=== PATIENT | female | born 1955 | race Caucasian/White ===

== ENCOUNTER → 2017-02-17 | Outpatient (CLI) | payer OTHER ==
--- NOTE | 2017-02-17 15:37 | XR ---
EXAMINATION TYPE: XR panorex DATE OF EXAM: 02/17/2017 COMPARISON: NONE HISTORY: Pain lower right mandible x2 months TECHNIQUE: Panorex FINDINGS: No acute fractures are evident. Temporomandibular junctions are normal. Dental amalgam is p resent. Prior root canals are evident. No abscess formation is identified. IMPRESSION: 1. No suspicious changes Panorex mandible
== END | disposition home or self-care (01) ==
LOC: RADXRMAIN 12:04
PROVIDERS: ATTEND Internal Medicine
DX: R68.84 Jaw pain (principal)
CPT/HCPCS: 70355

== ENCOUNTER → 2017-08-17 | Outpatient (CLI) | payer OTHER ==
--- NOTE | 2017-08-18 11:35 | MM ---
Reason for exam: screening (asymptomatic). Last mammogram was performed 1 year and 4 months ago. History: Patient is postmenopausal. Family history of breast cancer in grandmother. Took hormonal contraceptives for 2 years. Physical Findings: A clinical breast exam by your physician is recommended on an annual basis and results should be correlated with mammographic findings. MG 3D Screening Mammo W/Cad Bilateral CC and MLO view(s) were taken. Prior study comparison: April 13, 2016, bilateral MG screening mammo w CAD. July 06, 2015, left breast MG 3d diag mammo w/cad LT. The breast tissue is heterogeneously dense. This may lower the sensitivity of mammography. Stable benign calcifications. There is no discrete abnormality. No significant changes when compared with prior studies. ASSESSMENT: Benign, BI-RAD 2 RECOMMENDATION: Routine screening mammogram in 1 year.
== END ==
LOC: RADMAMWWP 08:38
PROVIDERS: ATTEND Obstetrics & Gynecology
DX: Z12.31 Encounter for screening mammogram for malignant neoplasm of breast (principal)
CPT/HCPCS: 77063; 77067

== ENCOUNTER → 2018-09-05 | Outpatient (CLI) | payer OTHER ==
--- NOTE | 2018-09-06 11:17 | MM ---
Reason for exam: screening (asymptomatic). Last mammogram was performed 1 year and 1 month ago. History: Patient is postmenopausal. Family history of breast cancer in grandmother. Took hormonal contraceptives for 2 years. Physical Findings: A clinical breast exam by your physician is recommended on an annual basis and results should be correlated with mammographic findings. MG 3D Screening Mammo W/Cad Bilateral CC and MLO view(s) were taken. Prior study comparison: August 17, 2017, bilateral MG 3d screening mammo w/cad. April 13, 2016, bilateral MG screening mammo w CAD. The breast tissue is heterogeneously dense. This may lower the sensitivity of mammography. Stable benign calcifications in the left breast. ASSESSMENT: Benign, BI-RAD 2 RECOMMENDATION: Routine screening mammogram of both breasts in 1 year.
== END | disposition home or self-care (01) ==
LOC: RADMAMWWP 07:05
PROVIDERS: ATTEND Internal Medicine
DX: Z12.31 Encounter for screening mammogram for malignant neoplasm of breast (principal)
CPT/HCPCS: 77063; 77067

== ENCOUNTER 2020-09-08 09:34 | Day surgery (SDC) | payer MEDICARE, OTHER ==
[2020-09-04 14:57] VITALS: BMI 28.3
[~2020-09-08 09:34] MED LIST: LIDOCAINE 1% (10MG/ML) FOR IV START INTRADERMA PRN
[2020-09-08] MEDS: LACTATED RINGERS 1,000 ML IV SCH ×2 (10:15→10:35)
[2020-09-08 10:16] VITALS: RESP 16; TEMP 97.8
[2020-09-08] MEDS ORDERED: LIDOCAINE 1% INJ 10MG/ML (20 ML MDV) ONE (10:36)
[2020-09-08] MEDS ORDERED: PROPOFOL 10 MG/ML 20 ML VIAL IV ONE (10:36)
[2020-09-08 11:20] VITALS: BP 131/73; PULSE 92
--- NOTE | 2020-09-08 11:30 | P.OP ---
Date of Procedure: 09/08/20 Preoperative Diagnosis: History of end colosotomy Postoperative Diagnosis: Same Procedure(s) Performed: Colonoscopy through stoma and colonoscopy of rectal stump with cold biopsy Anesthesia: MAC Surgeon: Kevin Noguera Estimated Blood Loss (ml): 0 Condition: stable Disposition: PACU Description of Procedure: Patient is brought Endo suite remained in the supine position underwent sedation per department of anesthesia timeout performed correct patient correct procedure correct site was verified scope was passed from the stoma to the cecum with ease the terminal ileum was intubated and no abnormalities were noted the scope was then slowly withdrawn being sure to visualize all díaz of the colon on the way out there was pandiverticulosis noted worse in the left colon. The scope was then placed through the rectum to the staple line which is noted at 30 cm. There was significant sigmoid diverticulosis left and the portion of the sigmoid that remained. There was some inflammation as well noted. Biopsies were taken. No other abnormalities are seen. Patient tolerated the procedure well there are no apparent complications
== END 2020-09-08 11:52 | disposition home or self-care (01) ==
LOC: ORWHC2ENDO 09:34
PROVIDERS: ATTEND Student in an Organized Health Care Education/Training Program
DX: Z43.3 Encounter for attention to colostomy (principal); K57.30 Diverticulosis of large intestine without perforation or abscess without bleeding; K21.9 Gastro-esophageal reflux disease without esophagitis; I10 Essential (primary) hypertension; Z88.2 Allergy status to sulfonamides; Z79.899 Other long term (current) drug therapy
CPT/HCPCS: 88305; 44389; J2001; J2704

== ENCOUNTER → 2021-03-25 | Outpatient (CLI) | payer MEDICARE ==
--- NOTE | 2021-03-25 09:19 | MM ---
Reason for exam: screening (asymptomatic). Last mammogram was performed 2 years and 7 months ago. History: Patient is postmenopausal. Family history of breast cancer in grandmother. Took hormonal contraceptives for 2 years. Physical Findings: A clinical breast exam by your physician is recommended on an annual basis and results should be correlated with mammographic findings. MG 3D Screening Mammo W/Cad Bilateral CC and MLO view(s) were taken. Prior study comparison: September 05, 2018, bilateral MG 3d screening mammo w/cad. August 17, 2017, bilateral MG 3d screening mammo w/cad. The breast tissue is heterogeneously dense. This may lower the sensitivity of mammography. There are benign appearing dystrophic calcifications in the right breast. There is chronic nodularity bilaterally. There is no discrete abnormality. ASSESSMENT: Benign, BI-RAD 2 RECOMMENDATION: Routine screening mammogram of both breasts in 1 year.
== END | disposition home or self-care (01) ==
LOC: RADMAMWWP 07:23
PROVIDERS: ATTEND Family Medicine
DX: Z12.31 Encounter for screening mammogram for malignant neoplasm of breast (principal)
CPT/HCPCS: 77063; 77067

== ENCOUNTER → 2022-05-04 | Outpatient (CLI) | payer MEDICARE ==
--- NOTE | 2022-05-05 08:48 | MM ---
Reason for Exam: Screening (asymptomatic). Last mammogram was performed 1 year(s) and 2 month(s) ago. Patient History: Menarche at age 13. First Full-Term at age 21. Postmenopausal. Patient used Hormonal Contraceptives for 2 years. Maternal grandmother had breast cancer. Risk Values: Arleen 5 year model risk: 1.4%. NCI Lifetime model risk: 4.6%. Prior Study Comparison: 08/17/2017 Bilateral Screening Mammogram, [facility]. 09/05/2018 Bilateral Screening Mammogram, [facility]. 03/25/2021 Bilateral Screening Mammogram, [facility]. Tissue Density: The breast tissue is heterogeneously dense. This may lower the sensitivity of mammography. Findings: Analyzed By CAD. There is no suspicious group of microcalcifications or new suspicious mass in either breast. Overall Assessment: Negative, BI-RAD 1 Management: Screening Mammogram of both breasts in 1 year. A clinical breast exam by your physician is recommended on an annual basis and results should be correlated with mammographic findings. Electronically signed and approved by: Raj Garcia M.D. Radiologis
== END | disposition home or self-care (01) ==
LOC: RADMAMWWP 07:44
PROVIDERS: ATTEND Family Medicine
DX: Z12.31 Encounter for screening mammogram for malignant neoplasm of breast (principal); Z78.0 Asymptomatic menopausal state; Z80.3 Family history of malignant neoplasm of breast
CPT/HCPCS: 77063; 77067

== ENCOUNTER → 2022-11-18 | Outpatient (CLI) | payer MEDICARE ==
[2022-11-18 21:39] LABS: Basophils # (A) 0.05 X 10*3/uL (0.00-0.10); Basophils % (A) 0.6 %; HCT 35.2 % (37.2-46.3); HGB 10.9 d/dL (12.0-15.0); Lymphocytes # (A) 1.52 X 10*3/uL (0.90-5.00); Lymphocytes % (A) 18.3 %; MCH 27.4 pg (27.0-32.0); MCV 88.4 FL (80.0-97.0); Mean Platelet Volume 11.3 FL (9.5-12.2); Monocytes % (A) 7.2 %; NRBC Per 100 WBC 0 X 10*3/uL (0.00-0.01); Neutrophils # (A) 5.61 X 10*3/uL (1.80-7.70); Neutrophils % (A) 67.5 %; Platelet Count 327 X 10*3/uL (140-440); RBC 3.98 X 10*6/uL (4.10-5.20); RDW 13.4 % (11.5-14.5); WBC 8.31 X 10*3/uL (4.50-10.00)
[2022-11-18 22:51] LABS: % Iron Saturation 12.68 (12.00-45.00); ALT 43 U/L (8-44); AST 50 U/L (13-35); Albumin 3.9 d/dL (3.8-4.9); Albumin/Globulin Ratio 1.26 Ratio (1.60-3.17); Alkaline Phosphatase 171 U/L (41-126); BUN/Creat Ratio 18.88 Ratio (12.00-20.00); Blood Urea Nitrogen 15.1 mg/dL (9.0-27.0); Calcium 9.4 mg/dL (8.7-10.3); Carbon Dioxide 22.9 mmol/L (21.6-31.8); Chloride 101 mmol/L (96-109); Globulin 3.1 d/dL (1.6-3.3); Glucose 127 mg/dL (70-110); Iron 43 UG/DL (50-170); Sodium 138 mmol/L (135-145); Total Bilirubin <0.2 mg/dL (0.3-1.2); Total Iron Binding Capacity 339 UG/DL (228-460)
== END | disposition home or self-care (01) ==
LOC: LABWHC1 10:28
PROVIDERS: ATTEND Family Medicine
DX: I10 Essential (primary) hypertension (principal); D64.9 Anemia, unspecified
CPT/HCPCS: 36415; 80053; 82728; 83540; 83550; 85025

== ENCOUNTER → 2022-12-29 | Outpatient (CLI) | payer MEDICARE ==
[2022-12-29 16:56] LABS: Basophils # (A) 0.04 X 10*3/uL (0.00-0.10); Basophils % (A) 0.6 %; Eosinophils # (A) 0.39 X 10*3/uL (0.04-0.35); Eosinophils % (A) 5.5 %; HCT 39.3 % (37.2-46.3); HGB 11.9 d/dL (12.0-15.0); Lymphocytes # (A) 1.26 X 10*3/uL (0.90-5.00); Lymphocytes % (A) 17.8 %; MCH 27.4 pg (27.0-32.0); MCHC 30.3 d/dL (32.0-37.0); MCV 90.3 FL (80.0-97.0); Mean Platelet Volume 10.9 FL (9.5-12.2); Monocytes # (A) 0.57 X 10*3/uL (0.20-1.00); Monocytes % (A) 8.1 %; NRBC Per 100 WBC 0 X 10*3/uL (0.00-0.01); Neutrophils # (A) 4.78 X 10*3/uL (1.80-7.70); Neutrophils % (A) 67.7 %; Platelet Count 284 X 10*3/uL (140-440); RBC 4.35 X 10*6/uL (4.10-5.20); RDW 15.2 % (11.5-14.5); WBC 7.06 X 10*3/uL (4.50-10.00)
[2022-12-29 17:14] LABS: Erythrocyte Sedimentation Rate 42 mm/Hr (0-30)
[2022-12-29 17:38] LABS: Chol/HDL Ratio 3.42 Ratio; Iron 35 UG/DL (50-170); LDL Cholesterol,Calculated 84.4 mg/dL (0.0-131.0); Total Iron Binding Capacity 350 UG/DL (228-460)
== END | disposition home or self-care (01) ==
LOC: LABWHC1 08:59
PROVIDERS: ATTEND Family Medicine
DX: Z00.01 Encounter for general adult medical examination with abnormal findings (principal); L65.9 Nonscarring hair loss, unspecified; E78.5 Hyperlipidemia, unspecified; D64.9 Anemia, unspecified; Z78.0 Asymptomatic menopausal state
CPT/HCPCS: 36415; 80061; 82306; 82607; 82728; 82746; 83036; 83540; 83550; 84439; 84443; 84481; 84630; 85025; 85652; 86038; 86140

== ENCOUNTER → 2023-05-08 | Outpatient (CLI) | payer MEDICARE ==
--- NOTE | 2023-05-08 17:28 | BD ---
EXAMINATION TYPE: Axial Bone Density DATE OF EXAM: 05/08/2023 CLINICAL HISTORY: 67 years old Female. ICD-10 CODE: Z78.0ASYMPTOMATIC MENOPAUSAL STATE Height: 62.5 Weight: 155.1 FRAX RISK QUESTIONS: Alcohol (3 or more units per day): no Family History (Parent hip fracture): no Glucocorticoids (More than 3mos): no History of Fracture in Adulthood: no Secondary Osteoporosis: 1. Type 1 Diabetes: no 2. Hyperthyroidism: no 3. Menopause before 45: no 4. Malnutrition: no 5. Chronic liver disease: no Rheumatoid Arthritis: no Current Tobacco Use: no RISK FACTORS HISTORY OF: Hip Fracture (Right/Left): no Spine Fracture: no History of Wrist Fracture: no Surgery to Spine/Hip(right/left)/Wrist (right/left): no Family History of Osteoporosis: no Active: yes Diet low in dairy products/other sources of calcium: yes Postmenopausal woman: yes Take estrogen and/or progesterone medications: no Lost more than 2 inches in height since high school: no Frequent falls: no Poor Health: no Hyperparathyroidism: no Adrenal Insufficiency: no MEDICATIONS: Prednisone or other steroids: no Thyroid Medications:no Osteoporosis Medications:no Additional Medications: Reflux meds, Vit D, Calcium Additional History: EXAM MEASUREMENTS: Bone mineral densitometry was performed using the [employer]. Bone mineral density as measured about the Lumbar spine is: ----- L1-L4(G/cm2): 1.032 T Score Values are as follows: ----- L1: -2.1 ----- L2: -1.6 ----- L3: -0.7 ----- L4: -0.9 ----- L1-L4: -1.2 Z Score Values are as follows: ----- L1: -0.6 ----- L2: -0.1 ----- L3: 0.8 ----- L4: 0.6 ----- L1-L4: 0.3 Baseline Study Bone mineral density about the R hip (g/cm2): 1.016 Bone mineral density about the L hip (g/cm2): 0.972 T Score values are as follows: -----R Neck: -0.4 -----L Neck: -1.0 -----R Total: 0.1 -----L Total: -0..3 Z Score values are as follows: -----R Neck: 1.1 -----L Neck: 0.5 -----R Total: `1.4 -----L Total: 1.0 Baseline Study FRAX%s: The graph provided illustrates a 8.7% chance for a major osteoporotic fx and a 0.99% chance f or the hips probability for fx in 10 years time. IMPRESSION: Osteopenia (T Score between -2.5 and -1). There is slightly increased risk of fracture and the patient may be considered for treatment. Re-Screen 2-5 years. NOTE: T-SCORE=SD OF THE YOUNG ADULT MEAN.
--- NOTE | 2023-05-09 21:09 | MM ---
Reason for Exam: Screening (asymptomatic). Last screening mammogram was performed 12 month(s) ago. Patient History: Menarche at age 13. First Full-Term at age 21. Postmenopausal. Patient used Hormonal Contraceptives for 2 years. Maternal grandmother had breast cancer. Risk Values: Arleen 5 year model risk: 1.4%. NCI Lifetime model risk: 4.3%. Prior Study Comparison: 09/05/2018 Bilateral Screening Mammogram, [facility]. 03/25/2021 Bilateral Screening Mammogram, [facility]. 05/04/2022 Bilateral MG 3D screening mammo w/cad, [facility]. Tissue Density: The breast tissue is heterogeneously dense. This may lower the sensitivity of mammography. Findings: Analyzed By CAD. Unchanged bilateral areas of asymmetric density. There is no suspicious group of microcalcifications or new suspicious mass in either breast. Overall Assessment: Benign, BI-RAD 2 Management: Screening Mammogram of both breasts in 1 year. . Patient should continue monthly self-breast exams. A clinical breast exam by your physician is recommended on an annual basis. This exam should not preclude additional follow-up of suspicious palpable abnormalities. Note on Arleen scores and lifetime risk: 1. A Arleen score greater than 3% is considered moderate risk. If this is the case, consider specialist referral to assess eligibility for a risk reducing agent. 2. If overall lifetime risk for the development of breast cancer is 20% or higher, the patient may qualify for future screening with alternating mammogram and breast MRI. Electronically signed and approved by: Duarte Chilel M.D. Radiologist
== END | disposition home or self-care (01) ==
LOC: RADMAMWWP 11:48
PROVIDERS: ATTEND Family Medicine
DX: Z12.31 Encounter for screening mammogram for malignant neoplasm of breast (principal); M85.89 Other specified disorders of bone density and structure, multiple sites; Z78.0 Asymptomatic menopausal state; Z80.3 Family history of malignant neoplasm of breast
CPT/HCPCS: 77063; 77067; 77080

== ENCOUNTER → 2023-07-10 | Outpatient (CLI) | payer MEDICARE ==
[2023-07-10 16:04] LABS: % Iron Saturation 15.72 (12.00-45.00); ALT 27 U/L (8-44); AST 22 U/L (13-35); Albumin 4.1 g/dL (3.8-4.9); Albumin/Globulin Ratio 1.24 Ratio (1.60-3.17); Alkaline Phosphatase 174 U/L (41-126); Blood Urea Nitrogen 16.8 mg/dL (9.0-27.0); Calcium 9.6 mg/dL (8.7-10.3); Carbon Dioxide 25.4 mmol/L (21.6-31.8); Chloride 104 mmol/L (96-109); Globulin 3.3 g/dL (1.6-3.3); Glucose 93 mg/dL (70-110); Iron 61 UG/DL (50-170); Potassium 4.7 mmol/L (3.5-5.5); Sodium 139 mmol/L (135-145); Total Bilirubin 0.2 mg/dL (0.3-1.2); Total Iron Binding Capacity 388 UG/DL (228-460); Total Protein 7.4 g/dL (6.2-8.2)
[2023-07-10 16:18] LABS: Basophils # (A) 0.05 X 10*3/uL (0.00-0.10); Basophils % (A) 0.7 %; Eosinophils # (A) 0.35 X 10*3/uL (0.04-0.35); Eosinophils % (A) 4.8 %; HCT 37.7 % (37.2-46.3); HGB 11.9 g/dL (12.0-15.0); Lymphocytes # (A) 1.63 X 10*3/uL (0.90-5.00); Lymphocytes % (A) 22.2 %; MCH 28.2 pg (27.0-32.0); MCHC 31.6 g/dL (32.0-37.0); MCV 89.3 FL (80.0-97.0); Mean Platelet Volume 11.1 FL (9.5-12.2); Monocytes # (A) 0.47 X 10*3/uL (0.20-1.00); Monocytes % (A) 6.4 %; NRBC Per 100 WBC 0 X 10*3/uL (0.00-0.01); Neutrophils # (A) 4.81 X 10*3/uL (1.80-7.70); Neutrophils % (A) 65.6 %; Platelet Count 233 X 10*3/uL (140-440); RBC 4.22 X 10*6/uL (4.10-5.20); RDW 14.1 % (11.5-14.5); WBC 7.33 X 10*3/uL (4.50-10.00)
== END | disposition home or self-care (01) ==
LOC: LABWHC1 11:11
PROVIDERS: ATTEND Family Medicine
DX: I10 Essential (primary) hypertension (principal); D64.9 Anemia, unspecified; E55.9 Vitamin D deficiency, unspecified; K57.20 Diverticulitis of large intestine with perforation and abscess without bleeding; K57.32 Diverticulitis of large intestine without perforation or abscess without bleeding; R73.01 Impaired fasting glucose; Z48.89 Encounter for other specified surgical aftercare
CPT/HCPCS: 36415; 80053; 82306; 82607; 82728; 83036; 83540; 83550; 85025

== ENCOUNTER → 2023-11-07 | Outpatient (CLI) | payer MEDICARE ==
[2023-11-07 14:58] LABS: Basophils # (A) 0.04 X 10*3/uL (0.00-0.10); Basophils % (A) 0.5 %; Eosinophils # (A) 0.39 X 10*3/uL (0.04-0.35); Eosinophils % (A) 5.2 %; HCT 40.2 % (37.2-46.3); HGB 12.7 g/dL (12.0-15.0); Lymphocytes # (A) 1.95 X 10*3/uL (0.90-5.00); Lymphocytes % (A) 26.2 %; MCH 28.5 pg (27.0-32.0); MCHC 31.6 g/dL (32.0-37.0); MCV 90.3 FL (80.0-97.0); Mean Platelet Volume 11.1 FL (9.5-12.2); Monocytes # (A) 0.47 X 10*3/uL (0.20-1.00); Monocytes % (A) 6.3 %; NRBC Per 100 WBC 0 X 10*3/uL (0.00-0.01); Neutrophils # (A) 4.59 X 10*3/uL (1.80-7.70); Neutrophils % (A) 61.7 %; Platelet Count 258 X 10*3/uL (140-440); RBC 4.45 X 10*6/uL (4.10-5.20); RDW 13.2 % (11.5-14.5); WBC 7.45 X 10*3/uL (4.50-10.00)
[2023-11-07 15:25] LABS: % Iron Saturation 20.75 (12.00-45.00); ALT 18 U/L (8-44); AST 22 U/L (13-35); Albumin 4.2 g/dL (3.8-4.9); Alkaline Phosphatase 152 U/L (41-126); BUN/Creat Ratio 29.62 Ratio (12.00-20.00); Blood Urea Nitrogen 23.7 mg/dL (9.0-27.0); Calcium 9.6 mg/dL (8.7-10.3); Carbon Dioxide 24.2 mmol/L (21.6-31.8); Chloride 102 mmol/L (96-109); Chol/HDL Ratio 3.81 Ratio; Glucose 97 mg/dL (70-110); Iron 72 UG/DL (50-170); LDL Cholesterol,Calculated 68.5 mg/dL (0.0-131.0); Potassium 4.3 mmol/L (3.5-5.5); Sodium 138 mmol/L (135-145); Total Bilirubin <0.2 mg/dL (0.3-1.2); Total Iron Binding Capacity 347 UG/DL (228-460); Total Protein 7.2 g/dL (6.2-8.2)
== END | disposition home or self-care (01) ==
LOC: LABWHC1 08:55
PROVIDERS: ATTEND Family Medicine
DX: E55.9 Vitamin D deficiency, unspecified (principal); D64.9 Anemia, unspecified; E78.5 Hyperlipidemia, unspecified; R73.01 Impaired fasting glucose
CPT/HCPCS: 36415; 80053; 80061; 82306; 82728; 83036; 83525; 83540; 83550; 85025

== ENCOUNTER → 2024-05-23 | Outpatient (CLI) | payer MEDICARE ==
--- NOTE | 2024-05-24 17:36 | MM ---
Reason for Exam: Screening (asymptomatic). Last screening mammogram was performed 12 month(s) ago. Patient History: Menarche at age 13. First Full-Term at age 21. Postmenopausal. Patient used Hormonal Contraceptives for 2 years. Maternal grandmother had breast cancer. Risk Values: Arleen 5 year model risk: 1.4%. NCI Lifetime model risk: 4.0%. Prior Study Comparison: 03/25/2021 Bilateral Screening Mammogram, [facility]. 05/04/2022 Bilateral MG 3D screening mammo w/cad, [facility]. 05/08/2023 Bilateral MG 3D screening mammo w/cad, [facility]. Tissue Density: The breasts are heterogeneously dense, which may obscure small masses. Findings: Analyzed By CAD. There is no suspicious group of microcalcifications or new suspicious mass in either breast. Overall Assessment: Benign, BI-RAD 2 Management: Screening Mammogram of both breasts in 1 year. . Patient should continue monthly self-breast exams. A clinical breast exam by your physician is recommended on an annual basis. This exam should not preclude additional follow-up of suspicious palpable abnormalities. Note on Arleen scores and lifetime risk: 1. A Arleen score greater than 3% is considered moderate risk. If this is the case, consider specialist referral to assess eligibility for a risk reducing agent. 2. If overall lifetime risk for the development of breast cancer is 20% or higher, the patient may qualify for future screening with alternating mammogram and breast MRI. [facility], , 05/24/2024 5:34 PM. Electronically signed and approved by: Duarte Chilel M.D. Radiologist
== END | disposition home or self-care (01) ==
LOC: RADMAMWWP 08:34
PROVIDERS: ATTEND Family Medicine
DX: Z12.31 Encounter for screening mammogram for malignant neoplasm of breast (principal); Z78.0 Asymptomatic menopausal state; Z80.3 Family history of malignant neoplasm of breast; R92.333 Mammographic heterogeneous density, bilateral breasts
CPT/HCPCS: 77063; 77067

== ENCOUNTER → 2024-06-21 | Outpatient (CLI) | payer MEDICARE ==
[2024-06-21 15:38] LABS: Basophils # (A) 0.04 X 10*3/uL (0.00-0.10); Basophils % (A) 0.6 %; Eosinophils # (A) 0.36 X 10*3/uL (0.04-0.35); Eosinophils % (A) 5.4 %; HCT 40.6 % (37.2-46.3); Lymphocytes # (A) 1.57 X 10*3/uL (0.90-5.00); Lymphocytes % (A) 23.8 %; MCH 28.6 pg (27.0-32.0); MCV 89.4 FL (80.0-97.0); Mean Platelet Volume 10.9 FL (9.5-12.2); Monocytes # (A) 0.61 X 10*3/uL (0.20-1.00); Monocytes % (A) 9.2 %; NRBC Per 100 WBC 0 X 10*3/uL (0.00-0.01); Neutrophils # (A) 4.01 X 10*3/uL (1.80-7.70); Neutrophils % (A) 60.7 %; Platelet Count 223 X 10*3/uL (140-440); RBC 4.54 X 10*6/uL (4.10-5.20); RDW 13.4 % (11.5-14.5); WBC 6.61 X 10*3/uL (4.50-10.00)
[2024-06-21 16:32] LABS: % Iron Saturation 17.85 (12.00-45.00); ALT 25 U/L (8-44); AST 26 U/L (13-35); Albumin 4.3 g/dL (3.8-4.9); Albumin/Globulin Ratio 1.34 Ratio (1.60-3.17); Alkaline Phosphatase 153 U/L (41-126); BUN/Creat Ratio 23.56 Ratio (12.00-20.00); Blood Urea Nitrogen 21.2 mg/dL (9.0-27.0); Calcium 9.6 mg/dL (8.7-10.3); Carbon Dioxide 26.6 mmol/L (21.6-31.8); Chloride 100 mmol/L (96-109); Chol/HDL Ratio 3.27 Ratio; Globulin 3.2 g/dL (1.6-3.3); Glucose 91 mg/dL (70-110); Iron 68 UG/DL (50-170); LDL Cholesterol,Calculated 66.4 mg/dL (0.0-131.0); Potassium 4.2 mmol/L (3.5-5.5); Sodium 138 mmol/L (135-145); Total Bilirubin 0.3 mg/dL (0.3-1.2); Total Iron Binding Capacity 381 UG/DL (228-460); Total Protein 7.5 g/dL (6.2-8.2)
== END | disposition home or self-care (01) ==
LOC: LABWHC1 09:23
PROVIDERS: ATTEND Family Medicine
DX: E78.5 Hyperlipidemia, unspecified (principal); E55.9 Vitamin D deficiency, unspecified; D64.9 Anemia, unspecified; R73.01 Impaired fasting glucose
CPT/HCPCS: 36415; 80053; 80061; 82306; 82728; 83036; 83525; 83540; 83550; 85025

== ENCOUNTER → 2024-12-19 | Outpatient (CLI) | payer MEDICARE ==
[2024-12-19 15:33] LABS: Basophils # (A) 0.03 X 10*3/uL (0.00-0.10); Basophils % (A) 0.5 %; Eosinophils # (A) 0.22 X 10*3/uL (0.04-0.35); Eosinophils % (A) 3.3 %; HCT 41.3 % (37.2-46.3); HGB 13.0 g/dL (12.0-15.0); Immature Grans, Automated 0.30 %; Lymphocytes # (A) 1.40 X 10*3/uL (0.90-5.00); Lymphocytes % (A) 21.1 %; MCH 29.2 pg (27.0-32.0); MCHC 31.5 g/dL (32.0-37.0); MCV 92.8 FL (80.0-97.0); Monocytes # (A) 0.57 X 10*3/uL (0.20-1.00); Monocytes % (A) 8.6 %; NRBC Per 100 WBC 0 X 10*3/uL (0.00-0.01); Neutrophils # (A) 4.38 X 10*3/uL (1.80-7.70); Neutrophils % (A) 66.2 %; Platelet Count 236 X 10*3/uL (140-440); RBC 4.45 X 10*6/uL (4.10-5.20); RDW 13.2 % (11.5-14.5); WBC 6.62 X 10*3/uL (4.50-10.00)
[2024-12-19 16:01] LABS: ALT 21 U/L (8-44); AST 27 U/L (13-35); Albumin 4.2 g/dL (3.8-4.9); Albumin/Globulin Ratio 1.31 Ratio (1.60-3.17); Alkaline Phosphatase 138 U/L (41-126); Anion Gap 12.10 mmol/L (4.00-12.00); BUN/Creat Ratio 17.11 Ratio (12.00-20.00); Blood Urea Nitrogen 15.4 mg/dL (9.0-27.0); Calcium 9.3 mg/dL (8.7-10.3); Carbon Dioxide 23.9 mmol/L (21.6-31.8); Chloride 99 mmol/L (96-109); Cholesterol 148.00 mg/dL (0.00-200.00); Ferritin 204.0 ng/mL (10.0-291.0); Globulin 3.2 g/dL (1.6-3.3); Glucose 111 mg/dL (70-110); HDL Cholesterol 43.80 mg/dL (40.00-60.00); Iron 59 UG/DL (50-170); LDL Cholesterol,Calculated 61.0 mg/dL (0.0-131.0); Potassium 4.5 mmol/L (3.5-5.5); Sodium 135 mmol/L (135-145); Total Iron Binding Capacity 367 UG/DL (228-460); Total Protein 7.4 g/dL (6.2-8.2); Triglycerides 216.00 mg/dL (0.00-149.00); VLDL Calculation 43.20 mg/dL (5.00-40.00)
== END | disposition home or self-care (01) ==
LOC: LABWHC1 09:10
PROVIDERS: ATTEND Nurse Practitioner Family
DX: Z00.01 Encounter for general adult medical examination with abnormal findings (principal); E78.5 Hyperlipidemia, unspecified; E55.9 Vitamin D deficiency, unspecified; D64.9 Anemia, unspecified; R73.01 Impaired fasting glucose
CPT/HCPCS: 36415; 80053; 80061; 82306; 82728; 83036; 83540; 83550; 84443; 85025